=== PATIENT | female | born 1990 | race Caucasian/White ===

== ENCOUNTER 2019-05-30 16:03 | Emergency (ER) | payer OTHER, SELFPAY ==
[2019-05-30 16:14] VITALS: BP 137/41; PULSE 82; RESP 20; TEMP 36.6; O2SAT 99
[2019-05-30 16:35] LABS: Basophils Percent Auto 0.5 % (0.2-1.2); Eosinophils Absolute Auto 0.1 K/mm3 (0-0.3); Eosinophils Percent Auto 0.8 % (0-4.4); Hematocrit 40.9 % (37.0-47.0); Hemoglobin 13.7 g/dL (12.0-15.0); Immature Granulocyte Absolute 0.01 K/mm3 (0.00-0.031); Immature Granulocyte Percent A 0.1 % (0-0.5); Immature Platelet Fraction Pct 14.6 % (0.9-11.2); Lymphocytes Absolute Auto 1.46 K/mm3 (0.9-3.2); Lymphocytes Percent Auto 17.3 % (18.3-44.2); Mean Corpuscular HGB Conc 33.5 g/dl (32-36); Mean Corpuscular Hemoglobin 31.1 pg (26-34); Mean Corpuscular Volume 92.7 fl (80-100); Monocytes Absolute Auto 0.6 K/mm3 (0.1-0.6); Monocytes Percent Auto 7.1 % (2.6-8.5); Neutrophils Absolute Auto 6.3 K/mm3 (1.3-6.7); Neutrophils Percent Auto 74.2 % (45.5-73.1); Red Blood Count 4.41 M/mm3 (4.2-5.4); Red Cell Distribution Width 12.9 % (11.5-14.5); White Blood Count 8.5 K/mm3 (4.5-10.0)
[2019-05-30 17:27] LABS: Add Urine Microscopic? YES; Appearance Urine Cloudy (Clear); Bilirubin Urine Negative (Negative); Blood Urine Negative (Negative); Color Urine Yellow (Yellow); Glucose Urine UA Negative (Negative); Ketones Urine Negative (Negative); Leukocyte Esterase Ur Negative LEU/UL (Negative); Mucus Urine Few /lpf; Nitrate Urine Negative (Negative); Protein Urine Negative (Negative); Specific Grav Ur 1.021 (1.001-1.035); Squamous Epithelial Cell Urine Many /hpf (Few); Urobilinogen Urine Negative mg/dL (<2.0); WBC Urine 0-3 /hpf
[2019-05-30 18:52] LABS: Alanine Aminotransferase 15 U/L (4-35); Albumin Level 4.5 g/dL (3.5-5.1); Alkaline Phosphatase 64 U/L (38-126); Aspartate Amino Transferase 25 U/L (14-36); Bilirubin,Total 0.3 mg/dL (0.2-1.3); Blood Urea Nitrogen 14 mg/dL (7-17); Calcium 9.1 mg/dL (8.4-10.2); Carbon Dioxide 26 mmol/L (22-30); Chloride 104 mmol/L (98-107); Estimated CRCL calculation 97 ml/min; Estimated Glomerular Filt Rate > 60; Glucose 95 mg/dL (65-105); Lipase 65 U/L (23-300); Potassium 4.1 mmol/L (3.4-5.0); Sodium 140 mmol/L (137-145)
--- NOTE | 2019-05-30 19:33 | ED.ABDPAIN ---
HPI - Abdominal Pain General Chief Complaint: Abdominal Pain Stated Complaint: GALLBLADDER ISSUES Time Seen by Provider: 05/30/19 19:19 Source: patient and RN notes reviewed Mode of arrival: ambulatory Limitations: no limitations History of Present Illness HPI narrative: Pt is a 28 y/o female presenting to the ED c/o ABD pain. Pt reports she started experiencing epigastric ABD pain 1 week ago. Pt states the pain has been constant and notes it is worsened when eating spicy food. Pt reports she has a Hx of GERD in which she is currently taking Omeprazole and has been referred to a Agronomy Professor with whom she is seeing on 06/05. Pt states she has never had an EGD. Pt also reports constipation, but denies N/V, SOB, diarrhea. Pertinent past history: other (GERD) Onset (ago): week(s) (1) Pain Consistency: constant Location: epigastric Associated symptoms: constipation Related Data Home Medications Medication Instructions Recorded Confirmed omeprazole 05/30/19 sertraline mg 05/30/19 Allergies Allergy/AdvReac Type Severity Reaction Status Date / Time No Known Allergies Allergy Verified 05/30/19 16:06 Review of Systems Review of Systems: All systems reviewed & are unremarkable except as noted in HPI and below Respiratory: Respiratory: Denies dyspnea Gastrointestinal: Gastrointestinal: Reports abdominal pain (Epigastric), Reports constipation, Denies diarrhea, Denies nausea and Denies vomiting PMFSH Past Medical History Medical History GERD (gastroesophageal reflux disease) Surgical History Surgical History No significant past surgical history Social History Social History Smoking status: Unknown if ever smoked Gender identity (if verbalized by the patient): Female Exam Narrative: Exam Narrative: GENERAL: Well-appearing, well-nourished, and in no acute distress. HEAD: Normocephalic, atraumatic EYES: PERRLA and EOMI, conjunctiva clear without discharge THROAT:Mucous membranes moist, Oropharynx normal without erythema, exudate, peritonsillar swelling or fluctuance NECK: Supple, without lymphadenopathy or mass RESPIRATORY: No respiratory distress, Airway patent, Respirations non-labored, Clear to auscultation without rales, rhonchi or wheeze HEART: Regular rate and rhythm. No murmur heard. Normal peripheral pulses. ABDOMEN: Soft, nontender, nondistended, normal active bowel sounds. No masses. No rebound or guarding, No organomegaly. EXTREMITIES: No edema, normal strength with full range of motion. SKIN: Warm, dry, normal color without rash NEURO: Alert and oriented x3. CN 2-12 grossly intact. No focal deficits. PSYCH: Normal mood and affect. Course Reevaluation(s) Reevaluation #1: PAtient was given GI cocktail and she reports her pain is resolving. I D iscussed with patient labs are normal. No obvious gallstones, pericholecystic fluid or wall thickening seen on bedside ultrasound. I discussed with patient that she will need to do low fat diet and follow up with PCP Date: 05/30/19 Time: 21:12 Vital Signs Vital signs: Vital Signs Temperature 97.8 F 05/30/19 16:14 Pulse Rate 82 05/30/19 16:14 Respiratory Rate 20 05/30/19 16:14 Blood Pressure 137/41 L 05/30/19 16:14 Pulse Oximetry 99 05/30/19 16:14 Temperature 97.8 F 05/30/19 16:14 Pulse Rate 60 05/30/19 21:22 Respiratory Rate 18 05/30/19 21:22 Blood Pressure 114/50 L 05/30/19 21:22 Pulse Oximetry 98 05/30/19 21:22 MDM - Abdominal Pain Differential Diagnosis Differential diagnosis: Likely abdominal pain, constipation, gastroenteritis, pancreatitis, small bowel obstruction and other (PUD, cholecystitis) Lab Data Attestation: I reviewed the patient's lab results. Result diagrams: 05/30/19 16:24 05/30/19 17:04 Labs: Lab Results 05/30/19 05/30/19 0
[2019-05-30] MEDS: BELLADONNA ALK/PHENOB ELIXIR 10 ML (20:02)
[2019-05-30] MEDS: MAG HYDROX/AL HYDROX/SIMETH 30 ML UDC (20:02)
[2019-05-30] MEDS: LIDOCAINE HCL 2% VISC SOLN 15 ML UDC (20:02)
[2019-05-30 20:03] VITALS: BP 111/64; PULSE 84; RESP 18; O2SAT 100
[2019-05-30 21:22] VITALS: BP 114/50; PULSE 60; RESP 18; O2SAT 98
== END 2019-05-30 21:28 | disposition home or self-care (01) ==
PROVIDERS: Family Medicine; Emergency Provider General Practice; PCP Nurse Practitioner
DX: R10.13 Epigastric pain (principal); K21.9 Gastro-esophageal reflux disease without esophagitis
CPT/HCPCS: 36415; 80053; 81001; 81025; 83690; 85025; 85055; 99283; A9270

== ENCOUNTER 2022-08-15 13:35 | Emergency (ER) | payer BC, OTHER, SELFPAY ==
--- NOTE | ~2022-08-15 | XR_ITS ---
EXAMINATION: XR shoulder RT min 2V DATE: 08/15/2022 15:02 INDICATION: Right shoulder pain. Fall. TECHNIQUE: 4 views of right shoulder were obtained. COMPARISON: None. FINDINGS: Bone alignment is normal. No fracture. Joint spaces are well maintained. IMPRESSION: 1. Normal right shoulder. Reviewed, dictated and finalized at location A. IMPRESSION: 1. Normal right shoulder.
[2022-08-15 13:49] VITALS: BP 103/66; PULSE 88; RESP 16; TEMP 37.2; O2SAT 98
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
== END 2022-08-15 15:32 | disposition home or self-care (01) ==
PROVIDERS: Emergency Provider Nurse Practitioner Family; PCP Nurse Practitioner
DX: M25.511 Pain in right shoulder (principal); V18.0XXA Pedal cycle driver injured in noncollision transport accident in nontraffic accident, initial encounter
CPT/HCPCS: 73030; 99213; G0463